=== PATIENT | female | born 1980 | race American Indian/Alaskan Native ===

== ENCOUNTER 2018-03-16 15:33 | Inpatient (IN) | payer OTHER ==
--- NOTE | 2018-03-16 16:06 | Emergency Department Report ---
HPI <DANIELA WHITING Zeyad - Last Filed: 03/16/18 22:07> - HPI HPI: 37-year-old female presents to the emergency department via EMS from work for altered mental status and questionable substance abuse or overdose. The patient was noted by coworkers to be just standing in one place in a daze, otherwise unresponsive. She has a prescription for Xanax but it is unknown whether she took any. She presents to the emergency department awake, eyes spontaneously open, but she is not responding to any questions or commands. Patient has never been to this emergency department previously. She is currently a poor historian secondary to her current condition. <CAROL GARCIA S - Last Filed: 03/17/18 16:02> - General Chief Complaint: Altered Mental Status Time Seen by Provider: 03/16/18 15:51 ED Past Medical Hx - Past Medical History Hx Psychiatric Treatment: Yes (anxiety) - Social History Smoking Status: Unknown if ever smoked <RADHACAROL S - Last Filed: 03/17/18 16:02> ED Review of Systems ROS: Stated complaint: OD Other details as noted in HPI <DANIELA WHITING Zeyad - Last Filed: 03/16/18 22:07> ROS: Stated complaint: OD Other details as noted in HPI Comment: Unobtainable due to pts medical conditions <RADHACAROL S - Last Filed: 03/17/18 16:02> Physical Exam - Physical Exam Vital Signs: Vital Signs 03/16/18 03/16/18 03/16/18 15:36 15:40 15:45 Temperature 98.1 F Pulse Rate 80 74 74 Respiratory 18 16 Rate Blood Pressure 125/69 125/69 O2 Sat by Pulse 97 100 100 Oximetry 03/16/18 03/16/18 03/16/18 16:00 16:10 16:15 Temperature Pulse Rate 82 81 Respiratory 12 18 15 Rate Blood Pressure 125/69 137/77 O2 Sat by Pulse 100 100 100 Oximetry 03/16/18 03/16/18 03/16/18 16:30 16:45 17:00 Temperature Pulse Rate 86 66 Respiratory 17 20 15 Rate Blood Pressure 137/77 133/113 133/113 O2 Sat by Pulse 99 100 Oximetry 03/16/18 03/16/18 03/16/18 17:15 17:30 17:45 Temperature Pulse Rate 96 H 69 68 Respiratory 16 19 17 Rate Blood Pressure 124/73 124/73 125/75 O2 Sat by Pulse 88 99 Oximetry 03/16/18 03/16/18 03/16/18 18:00 18:15 18:30 Temperature Pulse Rate 76 72 74 Respiratory 17 11 L 13 Rate Blood Pressure 125/75 131/78 131/78 O2 Sat by Pulse 99 100 100 Oximetry 03/16/18 03/16/18 03/16/18 18:45 19:00 19:15 Temperature Pulse Rate 77 75 79 Respiratory 17 14 17 Rate Blood Pressure 124/67 127/76 127/76 O2 Sat by Pulse 98 100 99 Oximetry 03/16/18 03/16/18 03/16/18 19:30 19:49 20:00 Temperature Pulse Rate 75 69 73 Respiratory 16 9 L 12 Rate Blood Pressure 120/69 120/69 123/75 O2 Sat by Pulse 99 100 100 Oximetry 03/16/18 03/16/18 03/16/18 20:15 20:30 20:45 Temperature Pulse Rate 81 75 85 Respiratory 14 12 13 Rate Blood Pressure 120/69 127/75 130/81 O2 Sat by Pulse 100 100 Oximetry 03/16/18 20:54 Temperature Pulse Rate Respiratory 16 Rate Blood Pressure O2 Sat by Pulse 100 Oximetry <DANIELA WHITING K - Last Filed: 03/16/18 22:07> - Physical Exam Vital Signs: Vital Signs 03/16/18 15:40 Temperature 98.1 F Pulse Rate 74 Respiratory 18 Rate Blood Pressure 125/69 O2 Sat by Pulse 100 Oximetry Physical Exam: GENERAL: Patient is ill-appearing. HEENT: Normocephalic. Atraumatic. Patient has moist mucous membranes. EYES: Extraocular motions are intact. Pupils are equal and reactive to light bilaterally. NECK: Supple. Trachea is midline. CHEST/LUNGS: Clear to auscultation. There is no respiratory distress noted. HEART/CARDIOVASCULAR: Regular. There is no tachycardia. There is no gallop rub or murmur. ABDOMEN: Abdomen is soft, nontender. Patient has normal bowel sounds. There is no abdominal distention. SKIN: Skin is warm and dry. NEURO: The patient appears awake with her eyes open and that she has otherwise nonresponsive. MUSCULOSKELETAL: There is no tenderness or deformity. There is no evidence of acute injury. <CAROL GARCIA S - Last Filed: 03/17/18 16:02> ED Course Vital Signs 03/16/18 03/16/18 03/16/18 15:36 15:40 15:45 Temperature 98.1 F Pulse Rate 80 74 74 Respiratory 18 16 Rate Blood Pressure 125/69 125/69 O2 Sat by Pulse 97 100 100 Oximetry 03/16/18 03/16/18 03/16/18 16:00 16:10 16:15 Temperature Pulse Rate 82 81 Respiratory 12 18 15 Rate Blood Pressure 125/69 137/77 O2 Sat by Pulse 100 100 100 Oximetry 03/16/18 03/16/18 03/16/18 16:30 16:45 17:00 Temperature Pulse Rate 86 66 Respiratory 17 20 15 Rate Blood Pressure 137/77 133/113 133/113 O2 Sat by Pulse 99 100 Oximetry 03/16/18 03/16/18 03/16/18 17:15 17:30 17:45 Temperature Pulse Rate 96 H 69 68 Respiratory 16 19 17 Rate Blood Pressure 124/73 124/73 125/75 O2 Sat by Pulse 88 99 Oximetry 03/16/18 03/16/18 03/16/18 18:00 18:15 18:30 Temperature Pulse Rate 76 72 74 Respiratory 17 11 L 13 Rate Blood Pressure 125/75 131/78 131/78 O2 Sat by Pulse 99 100 100 Oximetry 03/16/18 03/16/18 03/16/18 18:45 19:00 19:15 Temperature Pulse Rate 77 75 79 Respiratory 17 14 17 Rate Blood Pressure 124/67 127/76 127/76 O2 Sat by Pulse 98 100 99 Oximetry 03/16/18 03/16/18 03/16/18 19:30 19:49 20:00 Temperature Pulse Rate 75 69 73 Respiratory 16 9 L 12 Rate Blood Pressure 120/69 120/69 123/75 O2 Sat by Pulse 99 100 100 Oximetry 03/16/18 03/16/18 03/16/18 20:15 20:30 20:45 Temperature Pulse Rate 81 75 85 Respiratory 14 12 13 Rate Blood Pressure 120/69 127/75 130/81 O2 Sat by Pulse 100 100 Oximetry 03/16/18 20:54 Temperature Pulse Rate Respiratory 16 Rate Blood Pressure O2 Sat by Pulse 100 Oximetry <DANIELA WHITING - Last Filed: 03/16/18 22:07> Vital Signs 03/16/18 15:40 Temperature 98.1 F Pulse Rate 74 Respiratory 18 Rate Blood Pressure 125/69 O2 Sat by Pulse 100 Oximetry <CAROL GARCIA - Last Filed: 03/17/18 16:02> ED Medical Decision Making - Lab Data Result diagrams: 03/16/18 16:14 03/16/18 16:14 - Radiology Data Radiology results: image reviewed (CT head) [facility] [address] [place] [address] Cat Scan Report Signed Patient: PRERNA BURNS MR#: [id number] : 1980 Acct:[id number] Age/Sex: 37 / F ADM Date: 03/16/18 Loc: ED Attending Dr: Ordering Physician: CAROL GARCIA DO Date of Service: 03/16/18 Procedure(s): CT head/brain wo con Accession Number(s): [id number] cc: CAROL GARCIA DO FINAL REPORT PROCEDURE: CT head without contrast. TECHNIQUE: Computerized tomography of the head was performed without contrast material. HISTORY: Altered mental status. COMPARISON: No prior studies are available for comparison. FINDINGS: The ventricles are normal in size. The carrizales matter and white matter appear normal. There are no mass lesions. There is no intracranial hemorrhage. The calvarium appears intact. The mastoid air cells and visualized paranasal sinuses are clear. IMPRESSION: Normal study. Transcribed By: [facility] Dictated By: KEATON SOTO MD Electronically Authenticated By: KEATON SOTO MD Signed Date/Time: 03/16/182047 DD/ 47 TD/TT: 03/16/182047 <DANIELA WHITING - Last Filed: 03/16/18 22:07> - Lab Data Result diagrams: 03/17/18 04:57 03/17/18 04:57 - EKG Data -: EKG Interpreted by Fl EKG shows normal: sinus rhythm, axis, intervals, QRS complexes (LVH), ST-T waves Rate: normal - EKG Data When compared to previous EKG there are: previous EKG unavailable Interpretation: LVH - Medical Decision Making The patient presented after she was found standing but staring and unresponsive at work. She appears to be the same here in the hospital where she has her eyes open spontaneously but she is otherwise unresponsive. Labs have been unremarkable. Over the few hours and re-evaluations the patient has showed some improvement but still appears very fatigued and weak. CT of the head doctor when he bleed, shift, mass or any other acute process. My differential for this patient includes an absence seizure, pseudoseizure, overdose versus some type of psychiatric condition. However the patient does not have any establish follow-up with primary care or neurology. I spoke with the patient's boyfriend who says that she has been having these issues over the past few weeks. With my concern for recurrent undiagnosed seizures, the patient will be admitted to hospital for further evaluation and treatment. <CAROL GARCIA - Last Filed: 03/17/18 16:02> Critical care attestation.: If time is entered above; I have spent that time in minutes in the direct care of this critically ill patient, excluding procedure time. <DANIELA WHITING - Last Filed: 03/16/18 22:07> Critical Care Time: No Critical care attestation.: If time is entered above; I have spent that time in minutes in the direct care of this critically ill patient, excluding procedure time. <CAROL GARCIA - Last Filed: 03/17/18 16:02> ED Disposition Is pt being admited?: Yes Does the pt Need Aspirin: Yes Time of Disposition: 22:07 (hospitalist paged (Dr. Maribell Shah)) <DANIELA WHITING - Last Filed: 03/16/18 22:07> Is pt being admited?: Yes <CAROL GARCIA S - Last Filed: 03/17/18 16:02> Clinical Impression: Altered mental status Qualifiers: Altered mental status type: unspecified Qualified Code(s): R41.82 - Altered mental status, unspecified Disposition: DC-09 OP ADMIT IP TO THIS HOSP Condition: Fair
[2018-03-16 16:28] LABS: Basophils # (Auto) 0.1 K/mm3 (0.0-0.1); Basophils % (Auto) 0.7 % (0.0-1.8); Eosinophils # (Auto) 0.1 K/mm3 (0.0-0.4); Eosinophils % (Auto) 0.7 % (0.0-4.3); Hemoglobin 13.1 gm/dl (10.1-14.3); Lymphocytes # (Auto) 1.9 K/mm3 (1.2-5.4); Lymphocytes % (Auto) 24.2 % (13.4-35.0); Mean Corpuscular HGB Conc 35 % (30-34); Mean Corpuscular Hemoglobin 29 pg (28-32); Mean Corpuscular Volume 85 fl (79-97); Monocytes # (Auto) 0.4 K/mm3 (0.0-0.8); Monocytes % (Auto) 5.1 % (0.0-7.3); Platelet Count 391 K/mm3 (140-440); Red Blood Count 4.46 M/mm3 (3.65-5.03); Red Cell Distribution Width 13.5 % (13.2-15.2)
[2018-03-16 16:52] LABS: Alanine Aminotransferase 10 units/L (7-56); Albumin 3.7 g/dL (3.9-5); BUN/Creatinine Ratio 17; Blood Urea Nitrogen 10 mg/dL (7-17); Calcium 8.5 mg/dL (8.4-10.2); Hemolysis Index 3
[2018-03-16 17:06] LABS: Bilirubin,Urine NEG (Negative); Blood,Urine NEG (Negative); Color,Urine Yellow (Yellow); Mucus,Urine 2+ /HPF; Protein,Urine <15 mg/dL mg/dL (Negative); Urobilinogen,Urine < 2.0 mg/dL (<2.0)
[2018-03-16 17:24] LABS: Amphetamine Screen,Urine PRESUMPTIVE NEGATIVE; Cannabinoid Screen,Urine PRESUMPTIVE NEGATIVE; Cocaine Screen,Urine PRESUMPTIVE NEGATIVE; Methadone Screen,Urine PRESUMPTIVE NEGATIVE; Opiate Screen,Urine PRESUMPTIVE NEGATIVE
[2018-03-16 17:50] LABS: Benzodiazepines Screen,Urine PRESUMPTIVE POSITIVE
--- NOTE | 2018-03-16 20:50 | Cat Scan Report ---
FINAL REPORT PROCEDURE: CT head without contrast. TECHNIQUE: Computerized tomography of the head was performed without contrast material. HISTORY: Altered mental status. COMPARISON: No prior studies are available for comparison. FINDINGS: The ventricles are normal in size. The carrizales matter and white matter appear normal. There are no mass lesions. There is no intracranial hemorrhage. The calvarium appears intact. The mastoid air cells and visualized paranasal sinuses are clear. IMPRESSION: Normal study.
[2018-03-16] MEDS ORDERED: TYLENOL PO PRN (23:06)
[2018-03-16] MEDS ORDERED: SODIUM CHLORIDE FLUSH SYRINGE 10 ML IV PRN (23:06)
[2018-03-16] MEDS ORDERED: ZOFRAN IV PRN (23:06)
--- NOTE | 2018-03-16 23:09 | History and Physical Report ---
History of Present Illness Date of examination: 03/16/18 History of present illness: 37-year-old woman with a history of anxiety comes emergency room today because she was acting strange at work. She was noted to have a blank stare on her face , was not communicating. Was reported that she had some jerking movement of her body. The patient states that she wanted to speak but couldn't find the words to say. She states she usually gets anxiety attack similar to this, however rates and not been this bad Review of systems Constitutional: no weight loss, chills, fever Ears, eyes, nose, mouth and throat: no nasal congestion, no nasal discharge, no sinus pressure, no vision change, no red eye. Neck: No neck pain or rigidity. Cardiovascular: no chest pain, palpitations Respiratory: no cough, shortness of breath Gastrointestinal: no abdominal pain hematochezia Genitourinary : no frequency , no hematuria Musculoskeletal: no joint swelling or muscle ache Integumentary: no rash, no pruritis Neurological: no parathesias, no numbness, no focal weakness Endocrine: no cold or heat intolerance, no polyuria or polydipsia Hematologic/Lymphatic: no easy bruising, no easy bleeding, no gland swelling Allergic/Immunologic: no urticaria, no angioedema. PAST MEDICAL HISTORY: Anxiety PAST SURGICAL HISTORY: None SOCIAL HISTORY: No alcohol, no drugs, tobacco FAMILY HISTORY: Hypertension Medications and Allergies Allergies Allergy/AdvReac Type Severity Reaction Status Date / Time Unable to Assess Allergy Unverified 03/16/18 15:47 Exam - Physical Exam Narrative exam: Gen. appearance: Patient lying in bed, no apparent distress HEENT: Normocephalic, atraumatic, pupils equally round and reactive to light, extraocular movement intact, and no sclericterus,. No JVD or thyromegaly or nodule,neck supple, no carotid bruit ,mucous membranes moist, no exudate or erythema Heart: S1, S2, regular rate and rhythm Lungs: Clear bilaterally, breathing comfortable Abdomen: Positive bowel sounds, non-tender, nondistended, no organomegaly Extremity:no edema cyanosis, clubbing Skin: no rash, dry, warm Neuro: Oriented 3, cranial nerves II-12 intact, speech is fluent, motor and sensory intact - Constitutional Vitals: Temp Pulse Resp BP Pulse Ox 98.1 F 85 16 130/81 100 03/16/18 15:40 03/16/18 20:45 03/16/18 20:54 03/16/18 20:45 03/16/18 20:54 Results - Labs CBC & Chem 7: 03/16/18 16:14 03/16/18 16:14 Labs: Abnormal lab results 03/16/18 03/16/18 03/16/18 Range/Units 16:14 16:14 16:14 MCHC 35 H (30-34) % Potassium 3.5 L (3.6-5.0) mmol/L Creatinine 0.6 L (0.7-1.2) mg/dL Albumin 3.7 L (3.9-5) g/dL Salicylates < 0.3 L (2.8-20.0) mg/dL Acetaminophen (10.0-30.0) ug/mL 03/16/18 Range/Units 16:14 MCHC (30-34) % Potassium (3.6-5.0) mmol/L Creatinine (0.7-1.2) mg/dL Albumin (3.9-5) g/dL Salicylates (2.8-20.0) mg/dL Acetaminophen < 5.0 L (10.0-30.0) ug/mL - Imaging and Cardiology CT Scan - head: report reviewed Assessment and Plan Assessment Altered mental status resolved,, rule out seizure, probably anxiety related Plan Admit to medicine Start IV dfluid, obtain EEG dvt prophalaxis
[2018-03-17 05:54] LABS: Basophils % (Auto) 0.3 % (0.0-1.8); Eosinophils # (Auto) 0.1 K/mm3 (0.0-0.4); Eosinophils % (Auto) 1.3 % (0.0-4.3); Hematocrit 37.2 % (30.3-42.9); Hemoglobin 12.6 gm/dl (10.1-14.3); Lymphocytes # (Auto) 2.9 K/mm3 (1.2-5.4); Lymphocytes % (Auto) 36.1 % (13.4-35.0); Mean Corpuscular HGB Conc 34 % (30-34); Mean Corpuscular Hemoglobin 29 pg (28-32); Mean Corpuscular Volume 86 fl (79-97); Monocytes # (Auto) 0.5 K/mm3 (0.0-0.8); Monocytes % (Auto) 6.3 % (0.0-7.3); Platelet Count 390 K/mm3 (140-440); Red Blood Count 4.34 M/mm3 (3.65-5.03); Red Cell Distribution Width 13.4 % (13.2-15.2)
[2018-03-17 06:22] LABS: BUN/Creatinine Ratio 18; Blood Urea Nitrogen 11 mg/dL (7-17); Calcium 8.7 mg/dL (8.4-10.2); Hemolysis Index 0
[2018-03-17] MEDS: LOVENOX SUB-Q SCH (10:41)
[2018-03-17] MEDS: SODIUM CHLORIDE FLUSH SYRINGE 10 ML IV SCH ×2 (10:42→22:43)
--- NOTE | 2018-03-17 13:39 | Consultation ---
History of Present Illness Consult date: 03/17/18 History of present illness: Patient was apparently referred to the emergency room because some type of strange. She was apparently observed to have a blank stare and would not communicate on she complains that she was unable to move. There is some also at least some inability to move for a period of time. Aunts that she could not speak briefly. She did develop a headache after this. Interestingly she has had a long history of headaches occurring about once per week. She has seen another neurologist about this some time ago and is currently not seeing anyone. She denies any specific neurologic complaints at this time such as loss of vision double vision paralysis sensory loss or incoordination. The patient's described her headache as occasionally being throbbing in nature although she usually does not have any nausea or vomiting. She has otherwise been in good health. She denies anemia psoas for LOSS of vision double vision neck pain chest pain palpitations shortness of breath cough nausea vomiting diarrhea burning on urination intolerance. Past History Past Medical History: migraines. denies: acute PA, atrial fib, arrhythmia, anemia, arthritis, CAD, cancer, COPD, diabetes, dialysis, DVT, ESRD, GERD, heart failure, hepatitis, HIV/AIDS, hyperthyroidism, hypertension, hyperlipidemia, hypothyroidism, liver disease, pulmonary embolism, renal failure , seizures, stroke, sarcoidosis, other Past Surgical History: denies: No surgical history, Social history: no significant social history Family history: no significant family history Medications and Allergies Allergies Allergy/AdvReac Type Severity Reaction Status Date / Time Unable to Assess Allergy Unverified 03/16/18 15:47 Active Meds: Active Medications Acetaminophen (Tylenol) 650 mg PO Q4H PRN PRN Reason: Pain MILD(1-3)/Fever >100.5/MARTELL Enoxaparin Sodium (Lovenox) 40 mg SUB-Q QDAY [facility] Last Admin: 03/17/18 10:41 Dose: 40 mg Ondansetron HCl (Zofran) 4 mg IV Q8H PRN PRN Reason: Nausea And Vomiting Sodium Chloride (Sodium Chloride Flush Syringe 10 Ml) 10 ml IV BID [facility] Last Admin: 03/17/18 10:42 Dose: 10 ml Sodium Chloride (Sodium Chloride Flush Syringe 10 Ml) 10 ml IV PRN PRN PRN Reason: LINE FLUSH Physical Examination - Vital Signs Vital Signs: Vital Signs Pulse Pulse Ox 80 97 03/16/18 15:36 03/16/18 15:36 - Constitutional General appearance: comfortable - EENT EENT: Present: PERRL, hearing intact, vision intact - Respiratory Respiratory: Present: chest non-tender, lungs clear - Cardiovascular Cardiovascular: Present: regular rate Extremities: Present: no peripheral edema bilatateraly - Gastrointestinal Gastrointestinal: Present: normoactive bowel sounds - Integumentary Integumentary: Present: normal - Neurologic Cranial nerve examination: PERRL, EOMI Speech examination: intact Sensorimotor examination: intact Detailed motor examination: grossly full strength in, full strength in all shirin Detailed sensory examination: intact, light touch, pain - Psychiatric Psychiatric: Present: cooperative Results - Laboratory Findings CBC and BMP: 03/17/18 04:57 03/17/18 04:57 Abnormal Lab Findings: Abnormal Labs 03/16/18 03/16/18 03/16/18 16:14 16:14 16:14 MCHC 35 H Lymph % (Auto) Potassium 3.5 L Creatinine 0.6 L Glucose Albumin 3.7 L Salicylates < 0.3 L Acetaminophen 03/16/18 03/17/18 03/17/18 16:14 04:57 04:57 MCHC Lymph % (Auto) 36.1 H Potassium Creatinine 0.6 L Glucose 111 H Albumin Salicylates Acetaminophen < 5.0 L Assessment and Plan Recommendation EEG, MRI scan of the head without contrast and follow up with her neurologist as an outpatient
--- NOTE | 2018-03-17 15:18 | Discharge Summary ---
Providers - Providers Date of Admission: 03/16/18 23:06 Date of discharge: 03/18/18 Attending physician: COLEMAN JOSEPH 03/17/18 12:34 Consult to Physician [CONS] Routine Comment: Consulting Provider: RIGOBERTO RICARDO Physician Instructions: Reason For Exam: possible seizure Primary care physician: FITTING ROOM OPERATOR Hospitalization Condition: Fair Hospital course: Discharge diagnosis: Altered mental status resolved, probably anxiety related - CT/ MRI brain negative - Advised EEG outpt N/V likely from indigestion h/o anxiety, takes xanax as needed - dose unknown DVT Px Disposition: DC-01 TO HOME OR SELFCARE Time spent for discharge: 32 minutes Core Measure Documentation - Palliative Care Palliative Care/ Comfort Measures: Not Applicable - Core Measures Any of the following diagnoses?: none Exam - Constitutional Vitals: Temp Pulse Resp BP Pulse Ox 98.4 F 70 20 126/68 100 03/17/18 12:03 03/17/18 12:03 03/17/18 12:03 03/17/18 12:03 03/17/18 15:08 General appearance: Present: no acute distress, well-nourished - EENT Eyes: Present: PERRL ENT: hearing intact, clear oral mucosa - Neck Neck: Present: supple, normal ROM - Respiratory Respiratory effort: normal Respiratory: bilateral: CTA - Cardiovascular Heart Sounds: Present: S1 & S2. Absent: rub, click - Extremities Extremities: pulses symmetrical, No edema Peripheral Pulses: within normal limits - Abdominal General gastrointestinal: Present: soft, non-tender, non-distended, normal bowel sounds - Integumentary Integumentary: Present: clear, warm, dry - Musculoskeletal Musculoskeletal: gait normal, strength equal bilaterally - Psychiatric Psychiatric: appropriate mood/affect, intact judgment & insight - Neurologic Neurologic: CNII-XII intact, moves all extremities Plan Activity: advance as tolerated Weight Bearing Status: Weight Bear as Tolerated Diet: low fat Additional Instructions: f/u with Psychiatist and neurologist in one week. Outpt EEG in one week Follow up with: PRIMARY CAREMD [Primary Care Provider] - 3-5 Days
--- NOTE | 2018-03-17 17:13 | Magnetic Resonance Report ---
FINAL REPORT PROCEDURE: MRI brain without contrast. TECHNIQUE: Magnetic resonance imaging of the brain was performed without contrast material. HISTORY: Altered mental status. Headache, seizure. COMPARISON: CT head 03/16/2018. FINDINGS: The ventricles are normal in size. There is normal signal intensity from the carrizales matter and white matter. There are no mass lesions. There is no intracranial hemorrhage. There are no signs of restricted diffusion. The mastoid air cells and paranasal sinuses are clear. IMPRESSION: Normal study.
--- NOTE | 2018-03-17 20:18 | Cat Scan Report ---
FINAL REPORT PROCEDURE: CT head without contrast. TECHNIQUE: Computerized tomography of the head was performed without contrast material. HISTORY: Nausea and vomiting. COMPARISON: CT head done earlier today. FINDINGS: The ventricles are normal in size. The carrizales matter and white matter appear normal. There are no mass lesions. There is no intracranial hemorrhage. The calvarium appears intact. The mastoid air cells and visualized paranasal sinuses are clear. IMPRESSION: Normal study. No interval change.
[2018-03-18] MEDS: SODIUM CHLORIDE FLUSH SYRINGE 10 ML IV SCH (10:19)
[2018-03-18] MEDS: LOVENOX SUB-Q SCH (10:19)
--- NOTE | 2018-03-18 11:31 | Progress Note ---
Assessment and Plan Altered mental status resolved,, rule out seizure, probably anxiety related N/V likely from marijuana h/o anxiety, takes xanax- dose unknown DVT Px - No acute process on CT MRI brain - EEG pending, can do as out pt - monitor clinically, resume xanax when dose available - SCd for DVt Px Subjective Date of service: 03/17/18 Interval history: Pt seen and examined No acute event o/n planned to d/c this afternoon but could not go as she had a vomiting episode while leaving the room Objective - Constitutional Vitals: Vital Signs - 12hr 03/17/18 03/17/18 03/18/18 23:30 23:36 06:05 Temperature 98.5 F Pulse Rate 68 Pulse Rate [ 109 H From Monitor] Respiratory 19 16 Rate Respiratory 19 Rate [unable to assess] Blood Pressure 145/75 O2 Sat by Pulse 100 99 Oximetry General appearance: Present: no acute distress, well-nourished - EENT Eyes: PERRL, EOM intact ENT: hearing intact, clear oral mucosa Ears: bilateral: normal - Neck Neck: supple, normal ROM - Respiratory Respiratory effort: normal Respiratory: bilateral: CTA - Cardiovascular Rhythm: regular Heart Sounds: Present: S1 & S2. Absent: gallop, rub Extremities: pulses intact, No edema, normal color, Full ROM - Gastrointestinal General gastrointestinal: Present: soft, non-tender, non-distended, normal bowel sounds - Integumentary Integumentary: clear, warm, dry - Musculoskeletal Musculoskeletal: 1, strength equal bilaterally - Neurologic Neurologic: moves all extremities - Psychiatric Psychiatric: memory intact, appropriate mood/affect, intact judgment & insight - Labs CBC & Chem 7: 03/17/18 04:57 03/17/18 04:57
[2018-03-18 12:56] VITALS: BP 145/88
== END 2018-03-18 14:15 | disposition home or self-care (01) | DRG 880 ==
LOC: ED 15:33 → 3A 23:06
PROVIDERS: ADMIT Internal Medicine; ATTEND Internal Medicine
DX: F41.9 Anxiety disorder, unspecified (principal); G43.909 Migraine, unspecified, not intractable, without status migrainosus; K30 Functional dyspepsia; Z82.49 Family history of ischemic heart disease and other diseases of the circulatory system
CPT/HCPCS: 36415; 70450; 70551; 80048; 80053; 80307; 80320; 81001; 82140; 84484; 84703; 85025; 93005; 93010; 95819; 99285; G0480; J1650

== ENCOUNTER 2018-03-21 09:16 | Outpatient (CLI) | payer BC | END 2018-03-21 09:17 | disposition home or self-care (01) | LOC: EEG 09:16 | PROVIDERS: ATTEND Internal Medicine | DX: R56.9 Unspecified convulsions (principal); Z88.8 Allergy status to other drugs, medicaments and biological substances | CPT/HCPCS: 95819 ==